=== PATIENT | female | born 1975 ===

== ENCOUNTER 2022-04-06 05:29 | Emergency (ER) | payer OTHER ==
[~2022-04-06] VITALS: Ht 160 cm; Wt 56.7 kg
[~2022-04-06 05:29] MED LIST: LEXAPRO20 MG PO; TYLENOL-CODEINE1 TAB PO
[2022-04-06] MEDS ORDERED: KETO10TA2 PO (10:12)
[2022-04-06] MEDS ORDERED: NORFLEX100MG PO (10:12)
== END 2022-04-06 10:17 | disposition home or self-care (01) ==
LOC: ER 05:29
DX: M54.50 Low back pain, unspecified (principal)

== ENCOUNTER 2022-11-27 10:43 | Emergency (ER) | payer OTHER ==
[~2022-11-27] VITALS: Ht 157.5 cm; Wt 58.1 kg
[~2022-11-27 10:43] MED LIST changes: +KETO10TA2 PO; +NORFLEX100MG PO
[2022-11-27] MEDS ORDERED: CITALOPRAM20 MG/10 M PO (11:00)
[2022-11-27] MEDS ORDERED: CYCLOBENZAPRINE10 MG PO (15:47)
[2022-11-27] MEDS ORDERED: KETO10TA2 PO (15:49)
== END 2022-11-27 15:59 | disposition home or self-care (01) ==
LOC: ER 10:43
DX: M62.830 Muscle spasm of back (principal); M62.838 Other muscle spasm